=== PATIENT | male | born 2000 | race Asian ===

== ENCOUNTER 2020-04-28 19:31 | Emergency (ER) | payer OTHER, SELFPAY ==
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
[2020-04-28 19:35] VITALS: PULSE 82; RESP 20; TEMP 36.9; O2SAT 98
[2020-04-28] MEDS: Lidocaine/Epinephri/Tetracaine Topical Gel 3 ML (19:51)
== END 2020-04-28 21:05 | disposition home or self-care (01) ==
PROVIDERS: Emergency Provider Physician Assistant
DX: S51.812A Laceration without foreign body of left forearm, initial encounter (principal); V18.0XXA Pedal cycle driver injured in noncollision transport accident in nontraffic accident, initial encounter; Y93.55 Activity, bike riding
CPT/HCPCS: 12002